=== PATIENT | male | born 1955 | race African-American/Black ===

== ENCOUNTER → 2016-09-15 | Outpatient (CLI) | payer BC ==
[2016-09-15 14:01] LABS: FREE T4 1.39 ng/dL (0.76-1.46)
[2016-09-15 14:02] LABS: THYROID STIM HORMONE (TSH) 2.411 uIU/mL (0.358-3.740)
== END | disposition home or self-care (01) ==
LOC: LAB 08:13
PROVIDERS: ATTEND Internal Medicine Endocrinology, Diabetes & Metabolism
DX: E89.0 Postprocedural hypothyroidism (principal)
CPT/HCPCS: 84439; 84443